=== PATIENT | male | born 1950 | race Caucasian/White ===

== ENCOUNTER 2017-03-29 03:40 | Inpatient (IN) | payer SELFPAY ==
[2017-03-29] VITALS (21 sets, daily range): BP systolic 113–160; BP diastolic 67–111; PULSE 67–124; RESP 13–26; TEMP 97.5–99.1; O2SAT 84–100
[~2017-03-29] VITALS: Ht 172.7 cm; Wt 70.0 kg
[2017-03-29] MEDS ORDERED: PROPOFOL 1000 MG/100 ML INJ 100 ML ONE (03:56)
[2017-03-29] MEDS ORDERED: SODIUM CHLOR 0.9% 1000 ML INJ 1,000 ML IV SCH (04:05)
[2017-03-29] MEDS ORDERED: MIDAZOLAM HCL 5 MG/ML VIAL (1 ML) ONE (04:14)
[2017-03-29] MEDS ORDERED: MIDAZOLAM HCL 5 MG/5 ML VIAL IV PUSH ONE (04:15)
[2017-03-29] MEDS ORDERED: MIDAZOLAM 100 MG/100 ML INJ 100 ML IV PRN (04:15)
[2017-03-29] MEDS ORDERED: SODIUM CHLORIDE 0.9% FLUSH 5 ML FLUSH IV FLUSH PRN (04:15)
--- NOTE | 2017-03-29 04:28 | PD ---
HPI Chief Complaint: Altered Mental Status Time Seen by Provider: 04:05 Travel History International Travel<30 days: No Contact w/Intl Traveler<30days: No Traveled to known affect area: No History of Present Illness HPI Patient is Brian Dunbar identified by his credit card and his wallet. He also insisted Brian. He's an approximately 31-year-old male presents the emergency department for evaluation of altered mental status. 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 They were pulled over and the stacker driver was issued a DUI and arrested. This patient was altered and EMS was called to bring him into the hospital. EMS reported waxing and waning mental status. They're assisting ventilations on the patient arrival. The patient is having waxing and waning mental status on arrival to the emergency department, while Reintubation he opened his eyes and was able to be conversant and state that he didn't know what was going on. He was observed in the emergency department for 15-20 minutes with me at the bedside and continued to have moments of alertness but confusion followed by periods of being obtunded. No further history is available. [facility] Past Medical History Medical History: Denies Significant Hx Diminished Hearing: No Past Surgical History Surgical History: No Previous Surgery Social History Alcohol Use: Yes Tobacco Use: No (UNKNOWN ) Substance Use: Yes (UNKNOWN ) Allergies-Medications (Allergen,Severity, Reaction): Coded Allergies: acetaminophen (Verified Allergy, Intermediate, 03/29/17) cefepime (Verified Allergy, Intermediate, 03/29/17) Reported Meds & Prescriptions Reported Meds & Active Scripts Active No Active Prescriptions or Reported Medications Review of Systems ROS Limitations: Altered Mental Status Physical Exam Exam Limitations: Altered Mental Status Narrative GENERAL: Well-developed, well-nourished, waxing and waning mental status. SKIN: Focused skin assessment warm/dry. HEAD: Atraumatic. Normocephalic. No roberts signs no raccoons eyes EYES: Pupils equal and round. No scleral icterus. No injection or drainage. ENT: No nasal bleeding or discharge. Mucous membranes pink and moist. NECK: Trachea midline. No JVD. CARDIOVASCULAR: Regular rhythm with tachycardia. No murmur appreciated. RESPIRATORY: No accessory muscle use. Clear to auscultation. Breath sounds equal bilaterally. GASTROINTESTINAL: Abdomen soft, non-tender, nondistended. Hepatic and splenic margins not palpable. MUSCULOSKELETAL: No obvious deformities. No clubbing. No cyanosis. No edema. NEUROLOGICAL: Patient is having periods lasting anywhere from 30 seconds to 2 minutes where and his GCS is 3 and unresponsive to even the most painful stimuli. He is desaturating during this time with good waveforms into the low 50s. He is moving all 4 extremities, pupils are 3-4 mm and PERRL. Data Data Last Documented VS Vital Signs Date Time Temp Pulse Resp B/P (MAP) Pulse Ox O2 Delivery O2 Flow Rate FiO2 03/29/17 07:11 40 03/29/17 07:09 96 13 115/72 (86) 100 Ventilator 03/29/17 04:03 15.00 Orders Orders Propofol 1000 Mg/100 Ml Inj (Diprivan 10 (03/29/17 03:56) Electrocardiogram (03/29/17 04:05) Ammonia (03/29/17 04:05) Complete Blood Count With Diff (03/29/17 04:05) Comprehensive Metabolic Panel (03/29/17 04:05) Creatine Kinase (Cpk) (03/29/17 04:05) Prothrombin Time / Inr (Pt) (03/29/17 04:05) Act Partial Throm Time (Ptt) (03/29/17 04:05) Troponin I (03/29/17 04:05) Thyroid Stimulating Hormone (03/29/17 04:05) Urinalysis - C+S If Indicated (03/29/17 04:05) Lactic Acid Sepsis Protocol (03/29/17 04:05) Chest, Single Ap (03/29/17 04:05) Ct Brain W/O Iv Contrast(Rout) (03/29/17 04:05) Blood Glucose (03/29/17 04:05) Ecg Monitoring (03/29/17 04:05) Iv Access Insert/Monitor (03/29/17 04:05) Oximetry (03/29/17 04:05) Sodium Chloride 0.9% Flush (Ns Flush) (03/29/17 04:15) Sodium Chlor 0.9% 1000 Ml Inj (Ns 1000 M (03/29/17 04:05) Drug Screen, Random Urine (03/29/17 04:05) Alcohol (Ethanol) (03/29/17 04:05) Tylenol (Acetaminophen) (03/29/17 04:05) Salicylates (Aspirin) (03/29/17 04:05) Abdomen, Kub Only (03/29/17 ) Midazolam Inj (Versed Inj) (03/29/17 04:14) Ct Cerv Spine W/O Contrast (03/29/17 ) Midazolam Inj (Versed Inj) (03/29/17 04:15) Midazolam 100 Mg/100 Ml Inj (Versed Inj) (03/29/17 04:15) Neurological Rass Scale Q30MX2,Q2HX4,Q4H (03/29/17 04:14) Urinary Catheter Management JAN.Q8H (03/29/17 04:47) Insert Ng Tube (03/29/17 04:47) Restraints Non-Violent JAN.Q3H (03/29/17 04:47) Propofol 1000 Mg/100 Ml Inj (Diprivan 10 (03/29/17 05:00) ^ Infusion (03/29/17 04:47) RASS (03/29/17 04:47) Neurological Rass Scale JAN.Q2H (03/29/17 04:47) Etomidate Inj (Amidate Inj) (03/29/17 05:15) Succinylcholine Inj (Quelicin Inj) (03/29/17 05:15) Rocuronium Inj (Zemuron Inj) (03/29/17 05:15) Midazolam 100 Mg/100 Ml Inj (Versed Inj) (03/29/17 05:11) Arterial Blood Gas (Abg) (03/29/17 05:20) Resp Ventilation- Volume (03/29/17 ) Admit Order (Ed Use Only) (03/29/17 ) Labs Laboratory Tests Test 03/29/17 02:46 03/29/17 04:10 03/29/17 05:20 03/29/17 07:18 Urine Color LIGHT-YELLOW Urine Turbidity CLEAR Urine pH 6.5 Urine Specific [place] 1.005 Urine Protein NEG mg/dL Urine Glucose (UA) NEG mg/dL Urine Ketones NEG mg/dL Urine Occult Blood NEG Urine Nitrite NEG Urine Bilirubin NEG Urine Urobilinogen LESS THAN 2.0 MG/DL Urine Leukocyte Esterase SMALL Urine RBC LESS THAN 1 /hpf Urine WBC 3 /hpf Microscopic Urinalysis Comment CATH-CULT NOT IND Urine Opiates Screen NEG Urine Barbiturates Screen NEG Urine Amphetamines Screen POS Urine Benzodiazepines Screen NEG Urine Cocaine Screen NEG Urine Cannabinoids Screen NEG White Blood Count 5.5 TH/MM3 Red Blood Count 4.69 MIL/MM3 Hemoglobin 14.5 GM/DL Hematocrit 42.4 % Mean Corpuscular Volume 90.5 FL Mean Corpuscular Hemoglobin 30.9 PG Mean Corpuscular Hemoglobin Concent 34.1 % Red Cell Distribution Width 13.5 % Platelet Count 257 TH/MM3 Mean Platelet Volume 7.5 FL Neutrophils (%) (Auto) 40.2 % Lymphocytes (%) (Auto) 47.8 % Monocytes (%) (Auto) 11.1 % Eosinophils (%) (Auto) 0.4 % Basophils (%) (Auto) 0.5 % Neutrophils # (Auto) 2.2 TH/MM3 Lymphocytes # (Auto) 2.6 TH/MM3 Monocytes # (Auto) 0.6 TH/MM3 Eosinophils # (Auto) 0.0 TH/MM3 Basophils # (Auto) 0.0 TH/MM3 CBC Comment DIFF FINAL Differential Comment Prothrombin Time 10.2 SEC Prothromb Time International Ratio 0.9 RATIO Activated Partial Thromboplast Time 26.6 SEC Blood Urea Nitrogen 16 MG/DL Creatinine 1.04 MG/DL Random Glucose 116 MG/DL Total Protein 7.1 GM/DL Albumin 3.5 GM/DL Calcium Level 8.4 MG/DL Alkaline Phosphatase 68 U/L Aspartate Amino Transf (AST/SGOT) 18 U/L Alanine Aminotransferase (ALT/SGPT) 30 U/L Total Bilirubin 0.2 MG/DL Sodium Level 144 MEQ/L Potassium Level 3.7 MEQ/L Chloride Level 110 MEQ/L Carbon Dioxide Level 24.4 MEQ/L Anion Gap 10 MEQ/L Estimat Glomerular Filtration Rate 62 ML/MIN Lactic Acid Level 2.7 mmol/L 2.5 mmol/L Ammonia 27 MCMOL/L Total Creatine Kinase 140 U/L Troponin I LESS THAN 0.02 NG/ML Thyroid Stimulating Hormone 3rd Gen 2.630 uIU/ML Salicylates Level LESS THAN 1.7 MG/DL Acetaminophen Level LESS THAN 2.0 MCG/ML Ethyl Alcohol Level 222 MG/DL Blood Gas Puncture Site RT RADIAL Blood Gas Patient Temperature 98.6 Blood Gas HCO3 23 mmol/L Blood Gas Base Excess -1.0 mmol/L Blood Gas Oxygen Saturation 97 % Arterial Blood pH 7.43 Arterial Blood Partial Pressure CO2 35 mmHg Arterial Blood Partial Pressure O2 182 mmHG Arterial Blood Oxygen Content 19.4 Vol % Arterial Blood Carboxyhemoglobin 1.8 % Arterial Blood Methemoglobin 0.8 % Blood Gas Hemoglobin 14.0 G/DL Oxygen Delivery Device VENTILATOR Blood Gas Ventilator Setting AC 14/500/5PEEP Blood Gas Inspired Oxygen 40 % MDM Medical Decision Making Medical Screen Exam Complete: Yes Emergency Medical Condition: Yes Interpretation(s) EKG shows sinus tachycardia at a rate of 115, normal axis and normal intervals and normal R-wave progression. No concerning ST segment changes. This is a normal EKG except for rate. Differential Diagnosis Intoxication, GHB abuse, amphetamine abuse, head injury, neck injury, electrolyte abnormality, altered mental status. Infection seems less likely. Narrative Course Patient roomed in the emergency department, EMS states that they think had a history that this patient met the person online to meet him at a [employer]. The history is suggestive that this patient was drawn however there is no evidence to support this firmly. The patient does appear to be under the influence from some substance. GHB could be considered as well as hallucinogens. The patient was observed with me by bedside for 15-20 minutes with periods of apnea desaturations into the low 50s with good waveform. He then would arouse and return to a GCS of 13 very confused and opening his eyes only to verbal. This continued to occur and at this point to protect his airway and to maintain oxygen saturation decision was made to intubate patient. He was intubated started on propofol and Versed drips. He did awake after intubation and was given a dose of rocuronium to facilitate CAT scan. Patient now being sedated, at this time the patient was discussed with Dr. Cordova will allow him to metabolize his alcohol and then extubation trials sometime after that. Critical Care Narrative Aggregate critical care time was 35 minutes. Time to perform other separately billable procedures was not included in the critical care time. My time did not include minutes spent treating any other patients simultaneously or on activities that did not directly contribute to the patient's treatment. The services I provided to this patient were to treat and/or prevent clinically significant deterioration that could result in: , disability, organ failure I provided critical care services requiring my management, as noted below: Chart data review, documentation time, medication orders and management, vital sign assessments/reviewing monitor data, ordering and reviewing lab tests, ordering and interpreting/reviewing x-rays and diagnostic studies, care of the patient and discussion of the patient with the admitting physicians. Procedures Procedure Narrative INTUBATION: The patient was put in optimal position for the procedure. Rapid sequence intubation was initiated by me using 20 milligrams of etomidate IV and 100 milligrams of [succinylcholine IV. The patient was intubated with a 8-0 cuffed endotracheal tube. Tube placement was confirmed by visualization of the tube and balloon passing through the cords, capnometry and subsequent chest x-ray. Breath sounds were equal and well aerated bilaterally postintubation. No breath sounds over stomach. Patient tolerated procedure well. Diagnosis Primary Impression: Acute respiratory failure with hypoxia Additional Impressions: Alcohol intoxication Qualified Codes: F10.921 - Alcohol use, unspecified with intoxication delirium Altered mental status Qualified Codes: R40.2432 - Andrea coma scale score 3-8, at arrival to emergency department Admitting Information Admitting Physician Requests: Admit Scripts No Active Prescriptions or Reported Meds Condition: Stable Blair Bedoya MD Mar 29, 2017 04:28
[2017-03-29 04:31] LABS: AUTOMATED NEUTROPHIL # 2.2 TH/MM3 (1.8-7.7); BASOPHIL % 0.5 % (0.0-2.0); EOSINOPHIL % 0.4 % (0.0-4.0); HEMATOCRIT 42.4 % (39.0-51.0); HEMO FLAGS DIFF FINAL; LYMPH % 47.8 % (9.0-44.0); LYMPHOCYTE # 2.6 TH/MM3 (1.0-4.8); MEAN CELL VOLUME 90.5 FL (80.0-100.0); MEAN CORPUSCULAR HEMOGLOBIN 30.9 PG (27.0-34.0); MEAN CORPUSCULAR HGB CONC 34.1 % (32.0-36.0); MONO % 11.1 % (0.0-8.0); NEUT % 40.2 % (16.0-70.0); PLATELET COUNT 257 TH/MM3 (150-450); RED BLOOD COUNT 4.69 MIL/MM3 (4.50-5.90); RED CELL DISTRIBUTION WIDTH 13.5 % (11.6-17.2); WHITE BLOOD COUNT 5.5 TH/MM3 (4.0-11.0)
[2017-03-29 04:43] LABS: ANION GAP 10 MEQ/L (5-15); AST (GOT) 18 U/L (15-37); BICARBONATE 24.4 MEQ/L (21.0-32.0); BLOOD UREA NITROGEN 16 MG/DL (7-18); CHLORIDE 110 MEQ/L (98-107); GLOMERULAR FILTRATION RATE 62 ML/MIN (>89); POTASSIUM 3.7 MEQ/L (3.5-5.1); SODIUM (NA) 144 MEQ/L (136-145)
[2017-03-29 04:49] LABS: APTT (PATIENT) 26.6 SEC (24.3-30.1); INTERNATIONAL NORMALIZED RATIO 0.9 RATIO; PROTHROMBIN TIME - PATIENT 10.2 SEC (9.8-11.6)
--- NOTE | 2017-03-29 04:51 | RADRPT ---
EXAM DATE/TIME: 03/29/2017 04:19 [facility] COMPARISON: No previous studies available for comparison. INDICATIONS : Syncope MEDICAL HISTORY : None. SURGICAL HISTORY : None. ENCOUNTER: Initial ACUITY: 1 day PAIN SCORE: Non-responsive. LOCATION: Bilateral chest FINDINGS: A single view of the chest demonstrates the lungs to be symmetrically aerated without evidence of mas s, infiltrate or effusion. The cardiomediastinal contours are unremarkable. Osseous structures are intact. Endotracheal tube is identified with the tip approximately 1.4 cm above the south. Nasogastr ic tube crosses the GE junction and extends off the inferior aspect of image. CONCLUSION: 1. Lungs are clear. 2. Endotracheal tube approximately 1.4 cm above the south. Nasogastric tube enters the stomach. Xu Mendez MD on March 29, 2017 at 4:48 Board Certified Radiologist. This report was verified electronically.
[2017-03-29 04:54] LABS: ALKALINE PHOSPHATASE 68 U/L (45-117); ALT (GPT) 30 U/L (12-78); CREATINE KINASE 140 U/L (39-308); TOTAL BILIRUBIN ADULT 0.2 MG/DL (0.2-1.0)
[2017-03-29 05:03] LABS: BLOOD, URINE NEG (NEG); GLUCOSE,URINE NEG (NEG); KETONE, URINE NEG (NEG); NITRITE,URINE NEG (NEG); PH, URINE 6.5 (5.0-8.5); URINE COLOR LIGHT-YELLOW (YELLW/STRAW)
--- NOTE | 2017-03-29 05:03 | RADRPT ---
EXAM DATE/TIME: 03/29/2017 04:24 [facility] COMPARISON: No previous studies available for comparison. INDICATIONS : Foreign body. MEDICAL HISTORY : None. SURGICAL HISTORY : None. ENCOUNTER: Initial ACUITY: 1 day PAIN SCORE: Non-responsive. LOCATION: abdomen FINDINGS: Supine view of the abdomen was performed. The abdominal bowel gas pattern is normal. No abnormal ma sses, calcifications, or organomegaly is seen. Metallic screw like densities projected over the desc ending colon. On the one image submitted, I cannot determine if this is on or within the patient. The osseous structures are unremarkable. CONCLUSION: 1. 2 metallic screw-like densities projected over the descending colon. 2. Nonobstructive bowel gas pattern without pneumoperitoneum Xu Mendez MD on March 29, 2017 at 5:00 Board Certified Radiologist. This report was verified electronically.
[2017-03-29 05:05] LABS: ACETAMINOPHEN LESS THAN 2.0 MCG/ML (10.0-30.0); ALCOHOL 222 MG/DL (0-5)
[2017-03-29] MEDS: PROPOFOL 1000 MG/100 ML INJ 100 ML IV PRN ×5 (05:08→16:28)
[2017-03-29] MEDS ORDERED: MIDAZOLAM 100 MG/100 ML INJ 100 ML ONE (05:11)
[2017-03-29 05:12] LABS: COMMENT (UR) CATH-CULT NOT IND; CULTURE IF INDICATED CATH CULTURE NOT IND
--- NOTE | 2017-03-29 05:12 | RADRPT ---
EXAM DATE/TIME: 03/29/2017 04:47 [facility] COMPARISON: No previous studies available for comparison. INDICATIONS : Altered mental status, possible fall. RADIATION DOSE: 56.35 CTDIvol (mGy) MEDICAL HISTORY : Non-responsive. SURGICAL HISTORY : Non-responsive. ENCOUNTER: Initial ACUITY: 1 day PAIN SCALE: Non-responsive LOCATION: cranial TECHNIQUE: Multiple contiguous axial images were obtained of the head. Using automated exposure control and adj ustment of the mA and/or kV according to patient size, radiation dose was kept as low as reasonably a chievable to obtain optimal diagnostic quality images. DICOM format image data is available electro nically for review and comparison. FINDINGS: CEREBRUM: The ventricles are normal for age. No evidence of midline shift, mass lesion, hemorrhage or acute in farction. No extra-axial fluid collections are seen. POSTERIOR FOSSA: The cerebellum and brainstem are intact. The 4th ventricle is midline. The cerebellopontine angle i s unremarkable. EXTRACRANIAL: The visualized portion of the orbits is intact. SKULL: The calvaria is intact. No evidence of skull fracture. CONCLUSION: Negative exam. Xu Mendez MD on March 29, 2017 at 5:09 Board Certified Radiologist. This report was verified electronically.
--- NOTE | 2017-03-29 05:13 | RADRPT ---
EXAM DATE/TIME: 03/29/2017 04:47 [facility] COMPARISON: No previous studies available for comparison. INDICATIONS : Trauma, possible fall. RADIATION DOSE: 39.75 CTDIvol (mGy) MEDICAL HISTORY : Non-responsive. SURGICAL HISTORY : Non-responsive. ENCOUNTER: Initial ACUITY: 1 day PAIN SCALE: Non-responsive LOCATION: neck TECHNIQUE: Volumetric scanning of the cervical spine was performed. Multiplanar reconstructions in the sagittal, coronal and oblique axial planes were performed. Using automated exposure control and adjustment o f the mA and/or kV according to patient size, radiation dose was kept as low as reasonably achievable to obtain optimal diagnostic quality images. DICOM format image data is available electronically f or review and comparison. FINDINGS: VERTEBRAE: Normal vertebral body height. ALIGNMENT: No evidence of subluxation. C2-C3: The bony spinal canal is normal in size. No evidence of disc bulge or herniation. The neural forami na are bilaterally patent. C3-C4: The bony spinal canal is normal in size. No evidence of disc bulge or herniation. The neural forami na are bilaterally patent. C4-C5: The bony spinal canal is normal in size. No evidence of disc bulge or herniation. The neural forami na are bilaterally patent. C5-C6: The bony spinal canal is normal in size. No evidence of disc bulge or herniation. The neural forami na are bilaterally patent. C6-C7: The bony spinal canal is normal in size. No evidence of disc bulge or herniation. The neural forami na are bilaterally patent. C7-T1: The bony spinal canal is normal in size. No evidence of disc bulge or herniation. The neural forami na are bilaterally patent. CONCLUSION: 1. Endotracheal and nasogastric tubes are identified. 2. Otherwise negative. No fracture or listhesis. Spinal canal and neural foramina are patent througho ut. Xu Mendez MD on March 29, 2017 at 5:10 Board Certified Radiologist. This report was verified electronically.
[2017-03-29] MEDS ORDERED: ETOMIDATE 20 MG/10 ML VIAL IV PUSH ONE (05:15)
[2017-03-29] MEDS ORDERED: ROCURONIUM INJ 100 MG/10 ML VIAL IV ONE (05:15)
[2017-03-29] MEDS ORDERED: SUCCINYLCHOLINE CHLORIDE 100 MG/5 ML SYRINGE IV PUSH ONE (05:15)
[2017-03-29 05:30] LABS: BLOOD GAS CARBOXYHEMOGLOBIN 1.8 % (0-4); BLOOD GAS HCO3 23 mmol/L (22-26); BLOOD GAS METHEMOGLOBIN 0.8 % (0-2); BLOOD GAS O2 HGB SATURATION 97 % (90-100); BLOOD GAS OXYGEN CONTENT 19.4 Vol % (12.0-20.0); BLOOD GAS PCO2 35 mmHg (38-42); BLOOD GAS PO2 182 mmHG (61-120); TEMP CORR TO 98.6
[2017-03-29 05:31] LABS: CRITICAL VALUE NO; DRAW SITE RT RADIAL; FIO2 40 %; NUMBER OF ARTERIAL PUNCTURES 1; OXYGEN DEVICE VENTILATOR; STAT NO; ULNAR PULSE PRESENT; VENT SETTINGS AC 14/500/5PEEP
[2017-03-29 06:20] LABS: LACTIC ACID GHOST NOT REPORTABLE
[2017-03-29] MEDS ORDERED: CHLORHEXIDINE GLUCONATE 2 % 1 PACK (2 CLOTHS) TOP PRN (07:45)
[2017-03-29] MEDS ORDERED: POTASSIUM PHOSPHATE INJ 30 MMOL in SODIUM CHLOR 0.9% 250 ML INJ 250 ML IV PRN (07:45)
[2017-03-29] MEDS ORDERED: POTASSIUM CHLOR 20 MEQ PREMIX 100 ML IV PRN ×2 (07:45)
[2017-03-29] MEDS ORDERED: DEXTROSE 50% IN WATER 50 ML VIAL(D50) IV PUSH PRN (07:45)
[2017-03-29] MEDS ORDERED: POTASSIUM PHOSPHATE MONOBASIC 500 MG TAB PO/TUBE PRN (07:45)
[2017-03-29] MEDS ORDERED: MAGNESIUM SULFATE INJ 4 GM in SODIUM CHLORIDE 0.9% INJ 92 ML IV PRN (07:45)
[2017-03-29] MEDS ORDERED: MAGNESIUM SULFATE INJ 2 GM in SODIUM CHLORIDE 0.9% INJ 96 ML IV PRN (07:45)
[2017-03-29] MEDS ORDERED: ONDANSETRON HCL 4 MG/2 ML VIAL IV PUSH PRN (07:45)
[2017-03-29] MEDS ORDERED: LACTATED RINGER'S 1000 ML INJ 1,000 ML IV ONE (07:45)
[2017-03-29] MEDS ORDERED: MAGNESIUM OXIDE 400 MG TAB PO PRN (07:45)
[2017-03-29] MEDS ORDERED: MISCELLANEOUS NURSING INFORMATION XX SCH (07:45)
[2017-03-29] MEDS ORDERED: POTASSIUM CHLOR 40 MEQ PREMIX 100 ML IV PRN ×2 (07:45)
[2017-03-29] MEDS ORDERED: POTASSIUM PHOSPHATE MONOBASIC 500 MG TAB PO PRN (07:45)
[2017-03-29] MEDS ORDERED: SODIUM PHOSPHATE INJ 30 MMOL in SODIUM CHLOR 0.9% 250 ML INJ 240 ML IV PRN (07:45)
[2017-03-29] MEDS ORDERED: RESP: ALBUTEROL 2.5 MG/IPRATROPIUM 0.5 MG NEB (PRN) INH (07:45)
[2017-03-29] MEDS ORDERED: MULTIVITAMIN INJ 10 ML, THIAMINE INJ 100 MG, FOLIC ACID INJ 1 MG in SODIUM CHLOR 0.45% ... IV ONE (07:45)
[2017-03-29] MEDS: RESP: ALBUTEROL 2.5 MG/IPRATROPIUM 0.5 MG NEB (SCH) INH ×2 (07:54→15:17)
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
[2017-03-29] MEDS ORDERED: CHLORHEXIDINE 0.12% (ORAL KIT) 15 ML CUP MT SCH (08:00)
[2017-03-29] MEDS ORDERED: ENOXAPARIN SODIUM 40 MG/0.4 ML SYRINGE SQ SCH (08:00)
[2017-03-29] MEDS ORDERED: FAMOTIDINE 20 MG/2 ML VIAL IV PUSH SCH (09:00)
[2017-03-29] MEDS ORDERED: DOCUSATE SODIUM 50 MG/SENNA 8.6 MG TAB PO SCH (09:00)
--- NOTE | 2017-03-29 09:09 | EKG ---
Date Performed: 03/29/2017 Time Performed: 03:48:22 PTAGE: 89 years EKG: SINUS TACHYCARDIA POSSIBLE RIGHT VENTRICULAR CONDUCTION DELAY ABNORMAL RHYTHM ECG INTERPRET ATION BASED ON A DEFAULT AGE OF 41 YEARS NO PREVIOUS TRACING DOCTOR: Tee Dover Interpretating Date/Time 03/29/2017 09:07:35
[2017-03-29] MEDS: LACTATED RINGER'S 1000 ML INJ 1,000 ML IV SCH ×2 (10:40→17:20)
[2017-03-29] MEDS ORDERED: INSULIN NovoLIN REGULAR SUPPLEMENTAL SCALE SQ SCH (12:00)
[2017-03-29] MEDS ORDERED: DEXMEDETOMIDINE HCL 200 MCG/2 ML VIAL ONE (16:10)
[2017-03-29] MEDS ORDERED: ACETAMINOPHEN 325 MG TAB PO PRN (18:45)
[2017-03-30] MEDS ORDERED: CHLORHEXIDINE GLUCONATE 2 % 1 PACK (2 CLOTHS) TOP SCH (04:00)
[2017-03-30] MEDS ORDERED: THIAMINE INJ 100 MG in SODIUM CHLORIDE 0.9% INJ 100 ML IV SCH (04:00)
[2017-03-30] MEDS ORDERED: MULTIVITAMIN TAB PO SCH (09:00)
[2017-04-01] MEDS ORDERED: THIAMINE HCL 100 MG TAB PO SCH (09:00)
== END 2017-03-29 21:00 | disposition left against medical advice (07) | DRG 208 ==
LOC: NEPE 03:40 → EDBD 07:27 → NEDH 07:27 → HIMW 09:15
PROVIDERS: ADMIT Internal Medicine Critical Care Medicine; ATTEND Internal Medicine Critical Care Medicine
PROC: 0BH17EZ Insertion of Endotracheal Airway into Trachea, Via Natural or Artificial Opening (ICD-10-PCS; principal; 2017-03-29)
PROC: 5A1935Z Respiratory Ventilation, Less than 24 Consecutive Hours (ICD-10-PCS; 2017-03-29)
DX: J96.01 Acute respiratory failure with hypoxia (principal); G92 Toxic encephalopathy; F10.129 Alcohol abuse with intoxication, unspecified; R40.2430 Glasgow coma scale score 3-8, unspecified time
CPT/HCPCS: 31500; 36600; 43753; 51702; 70450; 71010; 72125; 74000; 80053; 80307; 81001; 82140; 82550; 82805; 82948; 83605; 84443; 84484; 85025; 85610; 85730; 87641; 93005; 94002; 94640; 94664; 96365; 96366; 96375; J0330; J1650; J2250; J3010; J3411; J7030; J7120